=== PATIENT | male | born 1965 | race Hispanic/Latino ===

== ENCOUNTER 2022-01-19 15:01 | Emergency (ER) | payer OTHER ==
[~2022-01-19 15:01] MED LIST: Iopamidol 370 76% 100 ML VIAL ONE
== END 2022-01-19 16:48 | disposition home or self-care (01) ==
LOC: MADERS 15:01
DX: S22.059A Unspecified fracture of T5-T6 vertebra, initial encounter for closed fracture (principal); S30.1XXA Contusion of abdominal wall, initial encounter; S20.211A Contusion of right front wall of thorax, initial encounter; N40.0 Benign prostatic hyperplasia without lower urinary tract symptoms; V49.59XA Passenger injured in collision with other motor vehicles in traffic accident, initial encounter
CPT/HCPCS: 70450; 71260; 72125; 74177; G0390; Q9967